=== PATIENT | female | born 1980 | race Hispanic/Latino ===

== ENCOUNTER 2017-12-22 05:20 | Emergency (ER) | payer OTHER ==
[2017-12-22] MEDS ORDERED: ZOFRAN IV ONE (06:01)
[2017-12-22] MEDS ORDERED: NACL 0.9% 1000 ML 1,000 ML IV ONE (06:01)
[2017-12-22] MEDS ORDERED: SUBLIMAZE IV ONE (06:01)
[2017-12-22 06:07] LABS: Basophils % (Auto) 0.3 % (0.0-1.8); Eosinophils # (Auto) 0.1 K/mm3 (0.0-0.4); Eosinophils % (Auto) 1.1 % (0.0-4.3); Lymphocytes # (Auto) 3.4 K/mm3 (1.2-5.4); Lymphocytes % (Auto) 32.6 % (13.4-35.0); Mean Corpuscular HGB Conc 35 % (30-34); Mean Corpuscular Hemoglobin 28 pg (28-32); Mean Corpuscular Volume 81 fl (79-97); Monocytes # (Auto) 0.8 K/mm3 (0.0-0.8); Monocytes % (Auto) 7.9 % (0.0-7.3); Platelet Count 253 K/mm3 (140-440); Red Blood Count 4.96 M/mm3 (3.65-5.03); Red Cell Distribution Width 13.7 % (13.2-15.2)
[2017-12-22] MEDS ORDERED: NARCAN 2 MG/2 ML ONE (06:12)
[2017-12-22] MEDS ORDERED: NARCAN 2 MG/2 ML IV ONE ×2 (06:16→06:17)
--- NOTE | 2017-12-22 06:23 | XRay Report ---
FINAL REPORT PROCEDURE: XR CHEST 1V AP TECHNIQUE: Chest radiograph anteroposterior view. CPT 80549 HISTORY: chest pain COMPARISON: No prior studies are available for comparison. FINDINGS: Heart: Normal. Mediastinum/Vessels: Normal. Lungs/Pleural space: Normal. Bony thorax: No acute osseous abnormality. Life support devices: None. IMPRESSION: No acute cardiopulmonary abnormality.
--- NOTE | 2017-12-22 06:23 | XRay Report ---
FINAL REPORT PROCEDURE: XR PELVIS 1-2V TECHNIQUE: Pelvis radiograph, AP view. CPT 46520 HISTORY: low back pain COMPARISON: No prior studies are available for comparison. FINDINGS: Fracture(s): None . Joint spaces: Normal . Soft tissues: Normal . Foreign bodies: None . Bone mineralization: Normal . IMPRESSION: Normal Examination
[2017-12-22 06:27] LABS: Alanine Aminotransferase 26 units/L (7-56); Albumin 4.3 g/dL (3.9-5); BUN/Creatinine Ratio 8; Blood Urea Nitrogen 5 mg/dL (7-17); Calcium 8.7 mg/dL (8.4-10.2); Hemolysis Index 2
[2017-12-22] MEDS ORDERED: HALDOL ONE (06:28)
[2017-12-22] MEDS ORDERED: HALDOL IV ONE (06:28)
[2017-12-22] MEDS ORDERED: ATIVAN IV ONE ×2 (06:56→07:43)
[2017-12-22] MEDS ORDERED: BENADRYL IV ONE (07:12)
[2017-12-22] MEDS ORDERED: HALDOL IM ONE (07:44)
[2017-12-22 08:19] LABS: Benzodiazepines Screen,Urine PRESUMPTIVE NEGATIVE; Cocaine Screen,Urine PRESUMPTIVE NEGATIVE; Opiate Screen,Urine PRESUMPTIVE NEGATIVE
[2017-12-22 08:34] LABS: Amphetamine Screen,Urine PRESUMPTIVE POSITIVE; Cannabinoid Screen,Urine PRESUMPTIVE POSITIVE; Methadone Screen,Urine PRESUMPTIVE POSITIVE
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
--- NOTE | 2017-12-22 08:50 | Cat Scan Report ---
CT CERVICAL SPINE WITHOUT CONTRAST INDICATION: Neck pain. COMPARISON: None similar. FINDINGS: Noncontrast axial, sagittal and coronal CT reconstructions through the cervical spine limited due to patient positioning/tilt, though suggests normal imaged posterior fossa. Intact craniocervical articulation, dens, predental space, prevertebral soft tissues and posterior elements. Assessment of the spinal canal itself compromised from C5 inferiorly due to shoulder artifact. Normal vertebral body stature and alignment. Mild C5-C7 degenerative spurring. Normal thyroid. Clear imaged lung apices. No large disc protrusions suspected. CONCLUSION: No acute CT abnormality with mid to lower cervical spine degenerative spurring seen, as described. Please correlate. Thank you for the opportunity to participate in this patient's care.
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
[2017-12-22] MEDS ORDERED: NACL 0.9% 1000 ML 1,000 ML ONE (11:05)
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
--- NOTE | 2017-12-22 16:58 | XRay Report ---
FINAL REPORT EXAM: XR WRIST 2V RT HISTORY: SWELLING OF RIGHT WRIST TECHNIQUE: AP and lateral portable views of the right wrist PRIORS: None. FINDINGS: There is posttraumatic deformity of the 4th proximal phalanx which is not well imaged on the current exam. Generalized soft tissue swelling of the wrist is noted. No other evidence of acute fracture or dislocation is seen. Joint spaces are maintained. IMPRESSION: Generalized soft tissue swelling of the wrist. No evidence for fracture of the wrist. There is deformity of the 4th proximal phalanx which is posttraumatic.
[2017-12-23 07:59] VITALS: BP 103/88
== END 2017-12-23 07:59 ==
LOC: EEVIPCON 05:20 → ED 05:20
DX: M25.531 Pain in right wrist (principal); R79.9 Abnormal finding of blood chemistry, unspecified; F19.10 Other psychoactive substance abuse, uncomplicated; F17.200 Nicotine dependence, unspecified, uncomplicated
CPT/HCPCS: 29125; 36415; 70450; 71045; 71250; 72125; 72170; 73100; 74176; 80053; 80307; 82550; 84484; 84703; 85025; 93005; 93010; 96361; 96372; 96374; 96375; 99284; G0480; J1200; J1630; J2060; J2310; J2405; J3010; J7030; 80320

== ENCOUNTER 2020-07-18 14:35 | Emergency (ER) | payer SELFPAY ==
--- NOTE | 2020-07-18 15:17 | Emergency Department Report ---
ED Seizure HPI - General Chief Complaint: Seizure Stated Complaint: SEIZURES Time Seen by Provider: 07/18/20 14:52 Source: patient, EMS Mode of arrival: Stretcher Limitations: No Limitations - History of Present Illness Initial Comments: 40-year-old female with history of drug abuse, seizure disorder, presents to ED following seizure. Patient states she normally takes Lamictal for her seizures, but has not been able to take it over the last 3 days because she is incarcerated. Patient states she was released from detention on yesterday. She denies any drug use yesterday or today. Drug use was heroin and methamphetamine, which she used prior to going to detention. Patient was given 2.5 mg Ativan by EMS prior to arrival. Patient has no complaints. MD Complaint: seizure -: This afternoon Seizure History: known seizure disorder, history of non-compliance Possible Precipitating Event: other (Medication noncompliance) Associated Symptoms: denies other symptoms Treatments Prior to Arrival: benzodiazepines - Related Data Allergies Allergy/AdvReac Type Severity Reaction Status Date / Time No Known Allergies Allergy Unverified 12/22/17 06:12 ED Review of Systems ROS: Stated complaint: SEIZURES Other details as noted in HPI Comment: All other systems reviewed and negative Constitutional: denies: fever Neurological: denies: headache ED Past Medical Hx - Past Medical History Previous Medical History?: Yes Hx Seizures: Yes Additional medical history: PTSD - Surgical History Past Surgical History?: No - Social History Smoking Status: Current Every Day Smoker ED Physical Exam - General Limitations: No Limitations General appearance: alert, in no apparent distress - Head Head exam: Present: atraumatic, normocephalic - Eye Eye exam: Present: normal appearance, EOMI - ENT ENT exam: Present: mucous membranes moist - Neck Neck exam: Present: normal inspection - Respiratory Respiratory exam: Present: normal lung sounds bilaterally. Absent: respiratory distress - Cardiovascular Cardiovascular Exam: Present: regular rate, normal rhythm - GI/Abdominal GI/Abdominal exam: Present: soft. Absent: distended, tenderness - Extremities Exam Extremities exam: Present: normal inspection - Neurological Exam Neurological exam: Present: alert, oriented X3 - Psychiatric Psychiatric exam: Present: normal affect, normal mood - Skin Skin exam: Present: warm, dry, intact, normal color ED Course Vital Signs 07/18/20 07/18/20 07/18/20 14:48 14:50 15:00 Temperature 98.2 F Pulse Rate 93 H 92 H 87 Respiratory 10 L 12 13 Rate Blood Pressure 117/75 Blood Pressure 106/68 [Left] O2 Sat by Pulse 97 100 Oximetry 07/18/20 07/18/20 16:00 17:31 Temperature Pulse Rate 82 79 Respiratory 19 16 Rate Blood Pressure 113/70 99/59 Blood Pressure [Left] O2 Sat by Pulse 99 100 Oximetry ED Medical Decision Making - Lab Data Result diagrams: 07/18/20 15:19 07/18/20 15:19 - Medical Decision Making 40-year-old female with history of drug abuse and seizure disorder presents to ED after having a seizure earlier today. Patient is currently awake and alert. Oriented x3. Potassium has been replaced. Patient states she missed the last 3 days of her seizure medicine because she was in detention. Patient notes that she takes Lamictal, however does not know the dosage. Patient states she has medication at home. Patient given Lamictal here in ED. No prescriptions given. Outpatient follow-up advised. Return precautions given. - Differential Diagnosis Medication noncompliance, drug abuse, lecture light abnormality Critical care attestation.: If time is entered above; I have spent that time in minutes in the direct care of this critically ill patient, excluding procedure time. ED Disposition Clinical Impression: Seizure, Hypokalemia Disposition: -01 TO HOME OR SELFCARE Is pt being admited?: No Condition: Stable Instructions: Seizure, Adult, [id number] Referrals: ILEANA COOPER MD [Primary Care Provider] - 3-5 Days CARA SCOTT MD [Referring] - 3-5 Days Time of Disposition: 17:13
[2020-07-18 15:55] LABS: Basophils % (Auto) 0.5 % (0.0-1.8); Eosinophils # (Auto) 0.1 K/mm3 (0.0-0.4); Eosinophils % (Auto) 1.6 % (0.0-4.3); Hematocrit 37.2 % (30.3-42.9); Hemoglobin 12.7 gm/dl (10.1-14.3); Lymphocytes # (Auto) 2.7 K/mm3 (1.2-5.4); Lymphocytes % (Auto) 37.9 % (13.4-35.0); Mean Corpuscular HGB Conc 34 % (30-34); Mean Corpuscular Volume 83 fl (79-97); Monocytes # (Auto) 0.5 K/mm3 (0.0-0.8); Monocytes % (Auto) 7.1 % (0.0-7.3); Platelet Count 233 K/mm3 (140-440); Red Blood Count 4.46 M/mm3 (3.65-5.03); Red Cell Distribution Width 15.6 % (13.2-15.2)
[2020-07-18 16:43] LABS: Blood Urea Nitrogen 18 mg/dL (7-17); Calcium 9.2 mg/dL (8.4-10.2); Hemolysis Index 13
[2020-07-18 16:45] LABS: BUN/Creatinine Ratio 26
[2020-07-18] MEDS ORDERED: POTASSIUM CHLORIDE ER 20 MEQ TAB PO ONE (16:54)
[2020-07-18] MEDS ORDERED: lamoTRIgine 100 MG TAB PO ONE (17:12)
[2020-07-18 17:45] VITALS: BP 99/59
== END 2020-07-18 17:40 | disposition home or self-care (01) ==
LOC: ED 14:35
DX: R56.9 Unspecified convulsions (principal); E87.6 Hypokalemia; F17.200 Nicotine dependence, unspecified, uncomplicated
CPT/HCPCS: 36415; 80048; 84703; 85025; 99284